=== PATIENT | male | born 1965 | race Caucasian/White ===

== ENCOUNTER 2021-02-04 10:09 | Emergency (ER) | payer OTHER, SELFPAY ==
[2021-02-04 10:27] VITALS: BP 123/58; PULSE 71; RESP 20; TEMP 36.8; O2SAT 100
--- NOTE | 2021-02-04 10:59 | ED.EYEPROB ---
HPI - Eye Problem General Chief complaint: Eye Problems Stated complaint: left eye swollen Source: patient Mode of arrival: ambulatory Limitations: no limitations History of Present Illness HPI Narrative: Patient is a 55 year old male who presents complaining of left eye swelling and discharge x 2 days. He denies foreign body sensation, denies injury. Patient reports eye is itchy, watery and has had purulent drainage in the am. He denies all other complaints at this time. Patient unable to list all medications. MD chief complaint: other Related Data Home Medications Medication Instructions Recorded Confirmed Unable to Obtain Home Medications 02/04/21 02/04/21 Allergies Allergy/AdvReac Type Severity Reaction Status Date / Time Penicillins Allergy Unknown Verified 02/04/21 10:57 Review of Systems Review of Systems: Narrative: CONSTITUTIONAL: Denies fever, chills, or sweats. EYES: Denies visual changes, reports redness, discharge and swelling to the left eye ENT: Denies rhinorrhea, congestion, sore throat, or otalgia. CARDIOVASCULAR: Denies chest pain, palpitations, or edema. RESPIRATORY: Denies cough or dyspnea. GASTROINTESTINAL: Denies abdominal pain, nausea, vomiting, or diarrhea. GENITOURINARY: Denies dysuria or hematuria. SKIN: Denies rash or itching. MUSCULOSKELETAL: Denies back pain, joint pain, or myalgia. NEUROLOGIC: Denies headache, numbness, dizziness, or weakness. PSYCHIATRIC: Denies anxiety or depression. [facility] Past Medical History Medical History Cataract Diabetes Elevated cholesterol HTN (hypertension) Surgical History Surgical History History of cataract surgery Family History Family History (Updated 02/04/21 @ 11:14 by AIYANA Agrawal) Other Heart disease Hypertension Social History Social History (Updated 02/04/21 @ 11:15 by AIYANA Agrawal) Smoking status: Never smoker Alcohol intake: current Alcohol use details: occasional Substance use: never Living arrangements: with family Comments At the time of signature, I have reviewed and agree with nursing past medical, surgical, social, and family history unless otherwise noted. Please see nursing chart for further information. There is no relevant family history pertinent to the presenting complaint. Exam Narrative: Exam Narrative: GENERAL: Well-appearing, well-nourished, and in no acute distress. HEAD: Normocephalic, atraumatic. EYES: EOMI. sclera mildly injected, conjunctiva reddened, mild swelling noted ENT: Mucous membranes pink and moist. CHEST: No respiratory distress. HEART: Regular rate and rhythm. EXTREMITIES: Normal range of motion. SKIN: Warm, dry, no rash. NEURO: No focal deficits. Alert and oriented x3. Gait steady. PSYCH: Normal affect. No signs of depression or anxiety. Course Vital Signs Vital signs: Vital Signs Temperature 36.8 C 02/04/21 10:27 Pulse Rate 71 02/04/21 10:27 Respiratory Rate 20 02/04/21 10:27 Blood Pressure 123/58 L 02/04/21 10:27 Pulse Oximetry 100 02/04/21 10:27 Temperature 36.8 C 02/04/21 10:27 Pulse Rate 71 02/04/21 10:27 Respiratory Rate 20 02/04/21 10:27 Blood Pressure 123/58 L 02/04/21 10:27 Pulse Oximetry 100 02/04/21 10:27 Reviewed. MDM - Eye Problem MDM Narrative Medical decision making narrative: Patient appears to have conjunctivitis, discussed with patient use of medication also cool compresses and Benadryl for edema. Discussed with patient is swelling increases, or he develops warmth and tenderness, please go to the emergency department immediately for further evaluation. Patient agrees with plan of care, patient is stable for discharge to home with outpatient follow-up as discussed. Differential Diagnosis Differential diagnosis: Likely corneal abrasion, conjunctivitis, acute iritis, periorbital ce
== END 2021-02-04 11:16 | disposition home or self-care (01) ==
PROVIDERS: Emergency Provider Nurse Practitioner
DX: H10.9 Unspecified conjunctivitis (principal); E11.9 Type 2 diabetes mellitus without complications; H26.9 Unspecified cataract; E78.00 Pure hypercholesterolemia, unspecified; I10 Essential (primary) hypertension
CPT/HCPCS: 99213; G0463